=== PATIENT | female | born 1990 | race Two or more races ===

== ENCOUNTER 2024-03-29 09:59 | Emergency (ER) | payer OTHER ==
[~2024-03-29] VITALS: Ht 172.7 cm; Wt 52.6 kg
[2024-03-29] MEDS ORDERED: GENT3.5O7 OP (10:35)
[2024-03-29 10:41] VITALS: BP 101/68; TEMP 98.2; O2SAT 99
== END 2024-03-29 10:57 | disposition home or self-care (01) ==
LOC: ER 09:59
DX: H00.014 Hordeolum externum left upper eyelid (principal); Z79.899 Other long term (current) drug therapy
CPT/HCPCS: A4606; A4663